=== PATIENT | female | born 1985 | race Caucasian/White ===

== ENCOUNTER 2018-08-11 20:41 | Emergency (ER) | payer OTHER, BC ==
[2018-08-11 21:42] LABS: ADD MAN DIFF? NO
[2018-08-11 21:43] LABS: BASOPHIL # 0.1 10^3/ul (0.0-0.1); BASOPHILS % 0.3 % (0.0-2.0); EOSINOPHILS # 0.1 10^3/ul (0.0-0.5); EOSINOPHILS % 0.7 % (0.0-7.0); HEMATOCRIT 37.3 % (37.0-47.0); LYMPHOCYTES % 5.6 % (15.0-51.0); MEAN CORPUSCULAR HEMOGLOBIN 27.3 pg (29.0-33.0); MEAN CORPUSCULAR HGB CONC 32.2 g/dl (32.0-37.0); MEAN PLATELET VOLUME 10.1 fl (7.4-10.4); MONOCYTES % 5.9 % (0.0-11.0); NEUTROPHIL # 14.8 10^3/ul (1.6-7.5); PLATELET COUNT 314 10^3/UL (140-415); RED BLOOD COUNT 4.39 10^6/ul (4.20-5.40); RED CELL DISTRIBUTION WIDTH 15.2 % (11.5-14.5)
[2018-08-11 22:02] LABS: ALANINE AMINOTRANSFERASE 37 IU/L (13-69); ALBUMIN 4.3 g/dl (3.3-4.9); ALBUMIN/GLOBULIN RATIO 1.26; ALKALINE PHOSPHATASE 144 IU/L (42-121); ANION GAP 14 (5-13); ASPARTATE AMINO TRANSFERASE 56 IU/L (15-46); BILIRUBIN,INDIRECT 0.3 mg/dl (0-1.1); BILIRUBIN,TOTAL 0.3 mg/dl (0.2-1.3); BLOOD UREA NITROGEN 16 mg/dl (7-20); CALCIUM 9.3 mg/dl (8.4-10.2); CARBON DIOXIDE 22 mmol/L (21-31); CHLORIDE 106 mmol/L (97-110); Estimated GFR > 60 mL/min (>60); GLUCOSE 143 mg/dl (70-220); LIPASE 48 U/L (23-300); SODIUM 142 mmol/L (135-144); TOTAL PROTEIN 7.7 g/dl (6.1-8.1)
[2018-08-11] MEDS: SOD CHLORIDE 0.9% 1,000 ML IV (22:09)
[2018-08-11] MEDS: ONDANSETRON 4 MG INJ IV (22:09)
[2018-08-11] MEDS: KETOROLAC 15 MG INJ IV (22:09)
[2018-08-11 22:13] LABS: TROPONIN-I < 0.012 ng/ml (0.000-0.120)
== END 2018-08-11 23:22 | disposition home or self-care (01) ==
LOC: E/R 20:41
DX: T40.1X1A Poisoning by heroin, accidental (unintentional), initial encounter (principal); F11.10 Opioid abuse, uncomplicated
CPT/HCPCS: 36415; 71045; 80053; 83690; 84484; 85025; 93005; 96374; 96375; 99285-25

== ENCOUNTER 2018-10-20 13:44 | Emergency (ER) | payer OTHER | END 2018-10-20 15:53 | disposition left against medical advice (07) | LOC: FTE 15:53 | DX: M79.602 Pain in left arm (principal); L03.012 Cellulitis of left finger | CPT/HCPCS: 99282; Z7502 ==

== ENCOUNTER 2018-10-21 22:55 | Emergency (ER) | payer OTHER ==
[2018-10-22] MEDS: CEPHALEXIN 500 MG CAP PO (00:15)
[2018-10-22] MEDS: TRIMETHOPRIM/SULFAMETHOX (DS) TAB PO (00:15)
== END 2018-10-22 00:42 | disposition home or self-care (01) ==
LOC: E/R 10-22 00:42
DX: Z48.02 Encounter for removal of sutures (principal); L03.113 Cellulitis of right upper limb
CPT/HCPCS: 93971; 99283